=== PATIENT | female | born 1990 | race African-American/Black ===

== ENCOUNTER 2024-09-24 09:55 | Emergency (ER) | payer OTHER, SELFPAY ==
[2024-09-24 09:58] VITALS: BP 126/89
[2024-09-24 10:00] VITALS: BP 126/89
[2024-09-24 10:03] VITALS: BMI 24.6
[2024-09-24] MEDS: NSS 1000 IV ×2 (10:10→11:09)
--- NOTE | 2024-09-24 10:12 | ED.GENMED ---
History of Present Illness
General
Chief Complaint: Seizure
Source: patient, ambulance crew and witness
Exam Limitations: none
Time Seen by Provider: 09/24/24 09:56
History of Present Illness
History of Present Illness:
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 Patient is from [place] and came to the area for a family friend's birthday green party. She was standing and saying hello to
people when her friend states she suddenly yelped. She fell backwards onto a chair, went unconscious, and started to seizure. Friend states her eyes rolled back, her arms became stiff, and her legs started shaking. The episode lasted <5 minutes. She
did not hit her head per friend's report. She bit her tongue during the episode. No incontinence. Patient does not recall the episode. Her only current symptom is feeling tired. She denies any headache, fevers, vomiting. She drank several glasses of
wine last night. She denies alcohol use or recent illness. She is currently on Lexapro and a medication for ADHD but she is unsure of the same. She has a history of petit mal seizures as a child and her last episode was at the age of 8-9. She was on
medications at that time but she was told that she grew out of it.
Phy Exam
Physical Exam
Physical Exam:
Patient fatigued but alert and answering questions appropriately
General Physical Exam
General Presentation: well appearing and no apparent distress
General age: appears stated age
General Skin: warm and dry
General Habitus: normal
General Mental: alert
ENT Exam
ENT Exam: normocephalic
Additional ENT: Lateral tongue lacerations noted without active bleeding or gaping
Eye Exam
Eye Exam: PERRL
Cardiovascular Exam
Cardiovascular Exam: no murmur and tachycardia
Pulmonary Exam
Pulmonary Exam: lungs clear, no respiratory distress, no rales, no crackles and no rhonchi
Neurological Exam
Neurological Exam: alert and no motor deficits
[place] Coma Scale
Eye Opening: Spontaneous
Verbal Response: Oriented
Motor Response: Obeys Commands
GCS Total Score: 15
Skin Exam
Skin Exam: normal color and warm/dry
Psychiatric Exam
Psychiatric Exam: normal mood/affect
Course
Orders/Labs/Results
Orders:
Orders
09/24/24 10:04
CT Head W/o Iv Contrast Urgent
Comment:
Reason For Exam: new onset seizure
0.9% Sodium Chloride 1000 ml [Nss] 1,000 ml IV BOLUS
Test Result ONCE
09/24/24 10:05
Electrocardiogram (*1) Urgent
Reason for Study: Other
Other Reason for Exam: seizure
EKG- Treatment ONCE
09/24/24 10:08
Complete Blood Count/With Diff Urgent
Comprehensive Metabolic Panel Urgent
HCG, Serum Qualitative Screen Urgent
Magnesium Urgent
09/24/24 10:52
0.9% Sodium Chloride 1000 ml [Nss] 1,000 ml IV BOLUS
09/24/24 13:07
Basic Metabolic Panel Urgent
Abnormal Lab Results
09/24/24 09/24/24
10:08 13:07
MCH 26.3 L pg
(27.0-31.0)
MCHC 32.2 L g/dL
(33.0-37.0)
Chloride 108 H mmol/L
(98-107)
Carbon Dioxide 14 L* mmol/L
(22-30)
Glucose 118 H mg/dl 133 H mg/dl
(70-99) (70-99)
Calcium 7.7 L mg/dl
(8.4-10.2)
09/24/24 10:08
09/24/24 13:07
Vital Signs
Initial and Last Documented VS:
Initial Vital Signs
Temp Pulse Resp BP Pulse Ox
97.5 F 132 18 126/89 97
09/24/24 09:58 09/24/24 09:58 09/24/24 09:58 09/24/24 09:58 09/24/24 09:58
Last Documented Vital Signs
Temp Pulse Resp BP Pulse Ox
97.5 F 117 27 120/85 97
09/24/24 09:58 09/24/24 13:45 09/24/24 13:45 09/24/24 13:00 09/24/24 13:45
MDM/Problems Addressed
Differential Diagnosis Includes:
34yoF here after a seizure. Described as eyes rolling back, arms stiffening, legs shaking, unconsciousness. Lasted <5 minutes. +Tongue biting. Remote hx of petit male seizures as a child. Patient awake and alert on arrival although appears fatigued.
She is tachycardic in the 130s with otherwise normal vital signs. No focal neuro deficits or meningismus noted. Differential diagnosis includes but is not limited to: tonic clonic seizure, convulsive syncope, electrolyte abnormality, subarachnoid
hemorrhage
Initial ED plan: Check CBC, CMP, HCG, EKG, and CT head. IV fluid bolus.
*EKG
Interpreted by ED Provider?: Yes
EKG Intrepretation Date: 09/24/24
Heart Rate: 109
Rate: tachycardiac
Rhythm: sinus
[place]: normal axis
Interval: normal interval
QRS Pattern: normal QRS
Ischemia: no ischemia
*Critical Care Note
Total Time (30-74mins, 75-104mins- exclusive of procedures): Not Applicable
Update Note
Update Note:
Labs show a bicarb of 14 with elevated anion gap. Suspect this is 2/2 lactic acidosis and reactive due to seizure. Remainder of labs unremarkable including normal electrolytes and HCG. EKG shows sinus tachycardia without ectopy or ischemic changes.
CT head is negative for acute findings. Additional fluid bolus ordered and repeat BMP obtained after fluid resuscitation. Repeat bicarb normal at 25. No indication for admission at this time. Patient is planning to return home to [place] tomorrow.
She will be with her friend the remainder of the day who will be able to monitor her. She does not have a drivers license. She was advised to f/u with neurology when she returns home. Strict ED return precautions discussed. Patient in agreement with
plan and was discharged in stable condition.
ED Attending Note
-
Portions of this chart may have been created with voice recognition software.� Occasional wrong word or��sound alike� substitutions may have occurred due to the inherent limitations of voice recognition software.
Discharge Plan
Departure
Patient Disposition: Home (Routine Discharge)
Date of Disposition: 09/24/24
Time of Disposition: 13:48
Patient with high blood pressure during this ER visit?: No
Discharge Problem:
New onset seizure
Instructions: Seizures, Adult (DC)
Prescriptions:
No Action
escitalopram oxalate [Lexapro] 10 mg Tablet
30 mg PO DAILY
atomoxetine 80 mg Capsule
80 mg PO DAILY
Referrals:
Tereso Holder MD [Active] -
Activity Restrictions/Additional Instructions:
Please call on Thursday to schedule a follow-up with neurology. Return to the ER with any worsening symptoms or recurrent seizures.
Interventions
Interventions:
*Risk Screen - Suicide Last Done: 09/24/24 14:18
*General Assessment Last Done: 09/24/24 14:18
*Neglect/Abuse Screening Last Done: 09/24/24 10:06
ED- Fall Risk Assessment Last Done: 09/24/24 14:18
*ED COVID-19 Vaccine History Last Done: 09/24/24 10:06
*Nursing Disposition Last Done: 09/24/24 14:18
ED- Cardiac Assessment Last Done: 09/24/24 13:50
ED- Neurological Assessment Last Done: 09/24/24 14:18
ED- Pulmonary Assessment Last Done: 09/24/24 14:18
Discharge Date and Time
Discharge Date/Time: 09/24/24 14:18
Print Language: [place]
[2024-09-24 10:27] LABS: HCG, Serum Qualitative Screen Negative
[2024-09-24 10:34] LABS: % Basophils 0.3 % (0-2); % Eosinophils 1.3 % (0-6); % Immature Granulocytes 0.3 % (0-0.5); % Lymphocytes 33.4 % (20.5-51.1); % Monocytes 5.9 % (1.7-9.3); % Neutrophils 58.8 % (42.2-75.2); Absolute Eosinophils 0.1 10^3/uL (0-0.7); Absolute Lymphocytes 2.1 10^3/uL (1.2-3.4); Absolute Monocytes 0.4 10^3/uL (0.1-0.6); Absolute Neutrophils 3.6 10^3/uL (1.4-6.5); Hematocrit 42.9 % (37.0-47.0); Hemoglobin 13.8 g/dL (12.0-16.0); Mean Corp Hgb Conc. 32.2 g/dL (33.0-37.0); Mean Corpuscular Hgb 26.3 pg (27.0-31.0); Mean Corpuscular Volume 81.9 fL (81.0-99.0); Mean Platelet Volume 10.4 fL (7.4-10.4); Nucleated Red Blood Cells % 0 %; Platelet Count 251 10^3/uL (130-400); Red Blood Cell Count 5.24 10^6/uL (4.20-5.40); White Blood Cell Count 6.1 10^3/uL (4.8-10.8)
[2024-09-24 10:48] LABS: AST (SGOT) 30 U/L (14-36); Alkaline Phosphatase 93 U/L (38-126); Blood Urea Nitrogen 9 mg/dl (7-17); Calcium 8.9 mg/dl (8.4-10.2); Carbon Dioxide 14 mmol/L (22-30); Chloride 102 mmol/L (98-107); Estimated Creatinine Clearance 74 ml/min; Glucose 118 mg/dl (70-99); Potassium 3.9 mmol/L (3.5-5.1); Sodium 139 mmol/L (135-145); Total Bilirubin 0.5 mg/dl (0.2-1.3); Total Protein 8.1 g/dl (6.3-8.2); eGFR > 60.00
[2024-09-24 10:56] VITALS: BP 112/83
[2024-09-24 11:00] VITALS: BP 112/84
[2024-09-24 11:12] LABS: ALT (SGPT) < 30 U/L (0-35)
[2024-09-24 12:00] VITALS: BP 126/89
[2024-09-24 13:00] VITALS: BP 120/85
[2024-09-24 13:33] LABS: Blood Urea Nitrogen 9 mg/dl (7-17); Calcium 7.7 mg/dl (8.4-10.2); Carbon Dioxide 25 mmol/L (22-30); Chloride 108 mmol/L (98-107); Estimated Creatinine Clearance 99 ml/min; Glucose 133 mg/dl (70-99); Potassium 3.9 mmol/L (3.5-5.1); Sodium 139 mmol/L (135-145); eGFR > 60.00
== END 2024-09-24 14:18 | disposition home or self-care (01) ==
LOC: EMR 09:55
PROVIDERS: Physician Assistant; EMERGENCY PHYSICIAN Student in an Organized Health Care Education/Training Program
DX: R56.9 Unspecified convulsions (principal); S01.512A Laceration without foreign body of oral cavity, initial encounter; X58.XXXA Exposure to other specified factors, initial encounter; F90.9 Attention-deficit hyperactivity disorder, unspecified type; Z79.899 Other long term (current) drug therapy
CPT/HCPCS: 99284; 96360; 96361; 70450; 80048; 80053; 83735; 84703; 85025; 93005